=== PATIENT | male | born 1975 | race Caucasian/White ===

== ENCOUNTER 2022-07-04 07:28 | Emergency (ER) | payer SELFPAY ==
[2022-07-04] MEDS ORDERED: Gadobenate Dimeglumine 529 MG/ML 20 ML SDV IVPUSH ONE (13:53)
[2022-07-04] MEDS ORDERED: Sodium Chloride 0.9% 10 ML Syringe FLUSH SCH (14:00)
== END 2022-07-04 16:00 | disposition home or self-care (01) ==
LOC: JD.ED 07:28
DX: R42 Dizziness and giddiness (principal); I10 Essential (primary) hypertension; E66.9 Obesity, unspecified; Z68.36 Body mass index [BMI] 36.0-36.9, adult; Z91.018 Allergy to other foods
CPT/HCPCS: 36415; 70250; 70450; 70553; 80053; 84484; 85025; 85610; 85730; 96374; 99284; A9577; J3490